=== PATIENT | female | born 1965 | race Caucasian/White ===

== ENCOUNTER 2019-06-23 03:43 | Emergency (ER) | payer OTHER ==
[2019-06-23 04:06] VITALS: BP 123/67; PULSE 86; TEMP 99.1; BMI 30.9
[2019-06-23] MEDS ORDERED: SODIUM CHLORIDE 0.9% 500 ML INFUS.BAG IV ONE (05:37)
[2019-06-23] MEDS ORDERED: ONDANSETRON 4 MG/2 ML VIAL IVPUSH ONE (05:37)
[2019-06-23] MEDS ORDERED: ACETAMINOPHEN 1000 MG/100 ML VIAL (NON FORMULARY) IVPB ONE (05:37)
[2019-06-23] MEDS ORDERED: FAMOTIDINE 20 MG/50 ML IVPB 20 MG/50 ML MG IVPB ONE ×3 (05:40→07:28)
--- NOTE | 2019-06-23 05:40 | PDOC ---
History of Present Illness <Gentry Ellison - Last Filed: 06/23/19 08:25> - History of Present Illness Initial Comments: Ms. Dyer is a 53 y/o female with no significant PMH presenting with abdominal pain that started yesterday. Reports that she started having a headache, abdominal pain, nausea, vomiting, and diarrhea yesterday. Reports several episodes of vomiting/diarrhea NBNB. She has never had this pain before. Describes the pain as sharp and constant, worse in the upper abdomen. Denies sick contacts. Denies recent travel. Denies etoh/smoking/drug use. <Claude Mueller - Last Filed: 06/23/19 19:48> - General Chief Complaint: Nausea/Vomiting Stated Complaint: VOMITING Time Seen by Provider: 06/23/19 05:26 Past History <Gentry Ellison - Last Filed: 06/23/19 08:25> - Psycho Social/Smoking Cessation Hx Smoking History: Never smoked Hx Alcohol Use: No Drug/Substance Use Hx: No <Claude Mueller - Last Filed: 06/23/19 19:48> - Past Medical History Allergies/Adverse Reactions: Allergies Allergy/AdvReac Type Severity Reaction Status Date / Time No Known Allergies Allergy Verified 06/23/19 04:04 Review of Systems - Review of Systems Comments:: GENERAL/CONSTITUTIONAL: No fever or chills. No weakness._ HEAD, EYES, EARS, NOSE AND THROAT: No change in vision. No change in hearing. No sore throat._ CARDIOVASCULAR: No chest pain or shortness of breath_ RESPIRATORY: Denies cough, hemoptysis_ GASTROINTESTINAL: Reports abdominal pain, nausea, vomiting, diarrhea. GENITOURINARY: No dysuria, frequency, or change in urination._ MUSCULOSKELETAL: No joint or muscle swelling or pain. No neck or back pain._ SKIN: No rash_ NEUROLOGIC: Reports mild headache. No vertigo, loss of consciousness, or change in strength/sensation._ ENDOCRINE: No increased thirst. No abnormal weight change_ HEMATOLOGIC/LYMPHATIC: No anemia, easy bleeding, or history of blood clots._ ALLERGIC/IMMUNOLOGIC: No hives or skin allergy._ <Claude Mueller - Last Filed: 06/23/19 19:48> *Physical Exam - Vital Signs Last Vital Signs Temp Pulse Resp BP Pulse Ox 99.1 F 86 18 123/67 98 06/23/19 04:04 06/23/19 04:04 06/23/19 04:04 06/23/19 04:04 06/23/19 04:04 <Gentry Ellison - Last Filed: 06/23/19 08:25> - Vital Signs Last Vital Signs Temp Pulse Resp BP Pulse Ox 99.1 F 86 18 123/67 98 06/23/19 04:04 06/23/19 04:04 06/23/19 04:04 06/23/19 04:04 06/23/19 04:04 - Physical Exam GENERAL: Awake, alert, and oriented to person/place/time, in no acute distress_ HEAD: No signs of trauma, normocephalic, atraumatic _ EYES: PERRLA, EOMI, sclera anicteric, conjunctiva clear_ ENT: Hearing grossly normal, nares patent, oropharynx clear without exudates. No uvular deviation. Moist mucosa_ NECK: Normal ROM, supple, no lymphadenopathy, JVD, or masses_ LUNGS: No distress, speaks in full sentences, clear to auscultation bilaterally _ HEART: Regular rate and rhythm, normal S1 and S2, no murmurs appreciated, peripheral pulses normal and equal bilaterally._ ABDOMEN: Soft, diffuse TTP worse in the epigastric area, normoactive bowel sounds. No guarding, no rebound. No masses_ EXTREMITIES: Normal inspection, Normal range of motion, no edema. No clubbing or cyanosis_ NEUROLOGICAL: Cranial nerves II through XII grossly intact. Normal speech, normal gait, no focal sensorimotor deficits _ SKIN: Warm, Dry, normal turgor, no rashes or lesions noted_ <Claude Mueller - Last Filed: 06/23/19 19:48> ED Treatment Course - LABORATORY CBC & Chemistry Diagram: 06/23/19 06:00 06/23/19 06:00 - ADDITIONAL ORDERS Additional order review: Laboratory Results 06/23/19 06/23/19 06/23/19 06:00 06:00 05:54 Sodium 140 Potassium 4.3 Chloride 110 H Carbon Dioxide 26 Anion Gap 4 L BUN 19.3 H Creatinine 0.8 Est GFR (CKD-EPI)AfAm 97.55 Est GFR (CKD-EPI)NonAf 84.17 Random Glucose 116 H Calcium 8.4 L Total Bilirubin 1.1 H AST 20 ALT 27 Alkaline Phosphatase 88 Creatine Kinase 210 H Creatine Kinase Index 0.5 CK-MB (CK-2) 1.2 Troponin I < 0.02 Total Protein 7.1 Albumin 4.0 Lipase 130 06/23/19 06:00 RBC 4.90 MCV 87.0 MCHC 34.8 RDW 13.8 MPV 8.3 Neutrophils % 91.4 H Lymphocytes % 5.1 L Monocytes % 3.1 L Eosinophils % 0.3 Basophils % 0.1 - Medications Given in the ED: ED Medications Discontinued Medications Generic Name Dose Route Start Last Admin Trade Name Freq PRN Reason Stop Dose Admin Acetaminophen 1,000 mg 06/23/19 05:37 06/23/19 07:30 Ofirmev Injection - IVPB 06/23/19 05:38 1,000 mg ONCE ONE Administration Al Hydroxide/Mg Hydroxide 30 ml 06/23/19 07:31 06/23/19 07:47 Mylanta Oral Suspension - PO 06/23/19 07:32 30 ml ONCE ONE Administration Famotidine/Sodium Chloride 20 mg in 50 mls @ 100 mls/hr 06/23/19 05:40 07:47 Pepcid 20 Mg Premixed Ivpb - IVPB 06/23/19 06:09 100 mls/hr ONCE ONE Administration Ondansetron HCl 4 mg 06/23/19 05:37 06/23/19 06:15 Zofran Injection IVPUSH 06/23/19 05:38 4 mg ONCE ONE Administration Sodium Chloride 1,000 ml 06/23/19 05:37 06/23/19 06:14 Normal Saline - IV 06/23/19 05:38 1,000 ml ONCE ONE Administration <Gentry Ellison - Last Filed: 06/23/19 08:25> - LABORATORY CBC & Chemistry Diagram: 06/23/19 06:00 06/23/19 06:00 <Claude Mueller - Last Filed: 06/23/19 19:48> ED Progress Note - Progress Note Progress Note: 06/23/19 07:59 EKG 0737 HR 92 VA 198 QRS 94 QTc 445 NSR; T-wave inversion V2-V4 Pt feels better s/p treatment DC home 06/23/19 08:25 spoke to patient over the phone regarding need to f/u w/ PCP for nonspecific changes on EKG <Gentry Ellison - Last Filed: 06/23/19 08:25> Medical Decision Making - Medical Decision Making 06/23/19 05:55 53 y/o female no PMH presenting with abdominal pain worse in the epigastric area , headache, nausea, vomiting, diarrhea that started yesterday. -cbc, cmp, lipase -ekg, trop -tylenol, pepcid, fluids, zofran 06/23/19 07:00 PT signed out to Dr. Ellison. <Claude Mueller - Last Filed: 06/23/19 19:48> Discharge - Discharge Information Problems reviewed: Yes - Admission No <Gentry Ellison - Last Filed: 06/23/19 08:25> - Discharge Information Problems reviewed: Yes - Admission No <Claude Mueller - Last Filed: 06/23/19 19:48> - Discharge Information Clinical Impression/Diagnosis: Epigastric pain Condition: Stable Disposition: HOME - Follow up/Referral Referrals: Queta Abdi NP [Primary Care Provider] - Frederick Burdick MD [Staff Physician] - Shane Lamas MD [Staff Physician] - - Patient Discharge Instructions Patient Printed Discharge Instructions: DI for Vomiting -- Adult, DI for Epigastric Pain Additional Instructions: Please keep yourself hydrated as much as possible with fluids. Continue your home medications as prescribed. Follow up with your primary care doctor in the next 3 days. If you experience any new, worsening, or concerning symptoms, including severe abdominal pain, blood in the vomit, or stool, or any other concerns, please return to the emergency department. Print Language: MALAY - Post Discharge Activity Work/Back to School Note: Back to Work
--- NOTE | 2019-06-23 05:58 | PDOC ---
Attending Attestation - Resident Resident Name: Claude Mueller - ED Attending Attestation I have performed the following: I have examined & evaluated the patient, The case was reviewed & discussed with the resident, I agree w/resident's findings & plan - HPI HPI: 06/23/19 06:52 Pt comes with vomiting and abd pain. 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 She has a viral gastroenteritis. No dysuria, no CP and no n/v Pt appears well after hydration - Physicial Exam PE: 06/23/19 06:53 Normal exam Lungs clear heart [id number] abd soft NT ND +BS no flnk pain. Some muscular LLback pain/spasm Pt has no C/C/E of extremities. Neuro no gross focal deficits. - Medical Decision Making 06/23/19 06:57 Pt feels great. Once her EKG is done and is normal, she can go home. Day team will get the EKG and sign her out.
[2019-06-23] MEDS ORDERED: ACETAMINOPHEN INJECTION 100 ML IVPB ONE ×2 (06:17→07:28)
[2019-06-23] MEDS ORDERED: ONDANSETRON 4 MG/2 ML VIAL ONE (06:17)
[2019-06-23 06:53] LABS: BILIRUBIN,TOTAL 1.1 mg/dL (0.2-1); BLOOD UREA NITROGEN 19.3 mg/dL (7-18); CALCIUM 8.4 mg/dL (8.5-10.1); CREATININE 0.8 mg/dL (0.55-1.3); POTASSIUM 4.3 mmol/L (3.5-5.1); TOT PROT 7.1 g/dl (6.4-8.2)
[2019-06-23 07:00] LABS: BASO % 0.1 % (0-2.0); EOS % 0.3 % (0-4.5); HEMATOCRIT 42.7 % (32.4-45.2); HEMOGLOBIN 14.9 GM/dL (10.7-15.3); LYMPH % 5.1 % (8-40); MCH 30.3 pg (25.7-33.7); MCHC 34.8 g/dl (32.0-36.0); MEAN PLT VOLUME 8.3 fl (7.5-11.1); MONO % 3.1 % (3.8-10.2); NEUT % 91.4 % (42.8-82.8); PLATELET COUNT 274 K/MM3 (134-434); RDW 13.8 % (11.6-15.6); WHITE BLOOD COUNT 10.7 K/mm3 (4.0-10.0)
[2019-06-23] MEDS ORDERED: MAG HYDROX/AL HYDROX/SIMETH 30 ML UNIT-DOSE CUP PO ONE (07:31)
[2019-06-23] MEDS ORDERED: MAG HYDROX/AL HYDROX/SIMETH 30 ML UNIT-DOSE CUP ONE (07:44)
[2019-06-23 12:06] LABS: ANISOCYTOSIS 1+; MACROCYTOSIS 0; PLATELET ESTIMATE NORMAL; TEAR DROP CELLS 1+
--- NOTE | 2019-06-23 12:50 | EKG ---
Test Reason : Blood Pressure : / mmHG Vent. Rate : 090 BPM Atrial Rate : 090 BPM P-R Int : 196 ms QRS Dur : 096 ms QT Int : 386 ms P-R-T Axes : 072 -02 044 degrees QTc Int : 472 ms NORMAL SINUS RHYTHM INFERIOR INFARCT , AGE UNDETERMINED ANTERIOR INFARCT , AGE UNDETERMINED ABNORMAL ECG NO PREVIOUS ECGS AVAILABLE Confirmed by ALEKSEY RANGEL MD ([id number]) on 06/23/2019 12:50:41 PM Referred By: Confirmed By:ALEKSEY RANGEL MD
== END 2019-06-23 08:15 | disposition home or self-care (01) ==
LOC: JER 03:43
PROC: 3E033GC Introduction of Other Therapeutic Substance into Peripheral Vein, Percutaneous Approach (ICD-10-PCS; principal; 2019-06-23)
PROC: 3E033GC Introduction of Other Therapeutic Substance into Peripheral Vein, Percutaneous Approach (ICD-10-PCS; 2019-06-23)
PROC: 3E033NZ Introduction of Analgesics, Hypnotics, Sedatives into Peripheral Vein, Percutaneous Approach (ICD-10-PCS; 2019-06-23)
DX: A08.4 Viral intestinal infection, unspecified (principal); B97.89 Other viral agents as the cause of diseases classified elsewhere
CPT/HCPCS: 36415; 80053; 82550; 82553; 83690; 84484; 85025; 93005; 93010; 96365; 96375; 99283-25; J0131

== ENCOUNTER 2020-12-01 19:41 | Emergency (ER) | payer OTHER ==
[2020-12-01 19:52] VITALS: BP 142/76; PULSE 107; TEMP 100.4
[2020-12-01] MEDS ORDERED: ACETAMINOPHEN 500 MG TABLET (FP) PO ONE (20:00)
[2020-12-01 20:02] VITALS: BMI 32.8
[2020-12-01] MEDS ORDERED: ACETAMINOPHEN 500 MG TABLET (FP) ONE (20:03)
[2020-12-01 21:05] LABS: PH,URINE 6.5 (5.0-8.0); URINE APPEARANCE CLEAR; URINE BILIRUBIN NEGATIVE (NEGATIVE); URINE COLOR YELLOW; URINE GLUCOSE (UA) NEGATIVE (NEGATIVE); URINE KETONE TRACE (NEGATIVE); URINE LEUK ESTERASE NEGATIVE (NEGATIVE); URINE NITRITE NEGATIVE (NEGATIVE); URINE PROTEIN NEGATIVE (NEGATIVE)
== END 2020-12-01 21:53 | disposition home or self-care (01) ==
LOC: JER 19:41
DX: B34.9 Viral infection, unspecified (principal)
CPT/HCPCS: 81003; 99283-25; C9803; U0003; U0005

== ENCOUNTER → 2023-09-12 | Day surgery (SDC) | payer OTHER | END | disposition home or self-care (01) | LOC: JRADUS-SUR 09:27 | PROVIDERS: ATTEND Family Medicine | PROC: 0H9U3ZX Drainage of Left Breast, Percutaneous Approach, Diagnostic (ICD-10-PCS; principal; 2023-09-12) | DX: D05.12 Intraductal carcinoma in situ of left breast (principal) | CPT/HCPCS: 19083; 77065-TC; 87899; 88305-TC; 88342-TC; A4648 ==